=== PATIENT | male | born 1945 | race Caucasian/White ===

== ENCOUNTER 2016-10-21 08:04 | Emergency (ER) | payer OTHER ==
[~2016-10-21] VITALS: Ht 180.3 cm; Wt 67.1 kg
[~2016-10-21 08:04] MED LIST: ASPIRIN81 M2 PO; AZULFIDINE500 M1 PO; CARDIZEM120 MG PO; CARVEDILOL12.5 MG PO; CLOPIDOGREL75 MG PO; COREG12.5 M1 PO; COREG6.25 M1 PO; Cardizem CD,Cartia XT,Tiazac PO; DIGOXIN250 MCG PO; EFFIENT10 MG PO; EFFIENT5 MG PO; IMODIUM MS REL1 EACH PO; LISINOPRIL5 MG PO; OMEPRAZOLE20 MG PO; PREDNISONE10 MG PO; PRINIVIL20 MG PO; TYLENOL EXTRA500 MG PO; XARELTO20 MG PO; ZOCOR40 MG PO
[2016-10-21 09:46] VITALS: BP 159/95
== END 2016-10-21 09:46 | disposition home or self-care (01) ==
LOC: EME 08:04
PROC: 0HQEXZZ Repair Left Lower Arm Skin, External Approach (ICD-10-PCS; principal; 2016-10-21)
DX: S51.812A Laceration without foreign body of left forearm, initial encounter (principal); W01.190A Fall on same level from slipping, tripping and stumbling with subsequent striking against furniture, initial encounter; I10 Essential (primary) hypertension
CPT/HCPCS: 99281; 99284

== ENCOUNTER 2017-01-19 10:56 | Inpatient (IN) | payer OTHER ==
[~2017-01-19] VITALS: Ht 180.3 cm; Wt 62.3 kg
[2017-01-19 11:21] LABS: BASOPHIL COUNT 0.1 K/uL (0-0.1); EOSINOPHIL (%) 0.2 % (0-5); HEMATOCRIT 47.5 % (38.0-50.0); IMMATURE GRANULOCYTE (%) 0.6 % (0.0-0.7); IMMATURE GRANULOCYTE COUNT 0.1 K/uL; INSTRUMENT ABS NEUTROPHIL CT 11.5 K/uL; LYMPHOCYTE COUNT 0.9 K/uL (1.0-2.8); MCH 31.3 PG (29.0-34.0); MCHC 32.8 G/DL (30.0-36.0); MCV 95.4 FL (86-99); MONOCYTE (%) 4.5 % (3-12); MONOCYTE COUNT 0.6 K/uL (0-0.8); NEUTROPHIL (%) 87.7 % (45-76); NEUTROPHIL COUNT 11.5 K/uL (1.8-6.4); PLATELET COUNT 309 K/uL (156-360); RBC DIS.WIDTH-CV 13.8 % (11.8-14.6); RBC DIS.WIDTH-SD 48.6 % (39-53); RED BLOOD COUNT 4.98 M/uL (4.00-5.50); WHITE BLOOD COUNT 13.1 K/uL (4.1-10.2)
[2017-01-19 11:29] LABS: INTER. NORMALIZED RATIO 1.1; PROTHROMBIN TIME 10.8 (9.2-11.2); PTT 25.8 (25-32)
[2017-01-19 11:30] LABS: AMYLASE 69 IU/L (1-118); CHLORIDE 99 mEq/L (99-109); POTASSIUM 4.6 mEq/L (3.7-5.4); SODIUM 137 mEq/L (136-147)
[2017-01-19 11:32] LABS: GLUCOSE 98 mg/dL (70-99)
[2017-01-19 11:33] LABS: ANION GAP 13 MEQ/L (2-14)
[2017-01-19 11:35] LABS: SERUM ETHYL ALCOHOL < 10 mg/dL
[2017-01-19 11:36] LABS: GFR ESTIMATE (CALCULATED) > 59 mL/min/
[2017-01-19 11:37] LABS: UREA NITROGEN (BUN) 10 mg/dL (9-23)
[2017-01-19 11:39] LABS: LIPASE 19 U/L (1.0-51.0)
[2017-01-19 11:42] LABS: TROP-I INTERPRETATION NEGATIVE; TROPONIN-I 0.04 ng/mL (0.0-0.30)
[2017-01-19] MEDS ORDERED: CARVEDILOL6.25 MG PO (13:58)
[2017-01-19] MEDS ORDERED: ASPIRIN325 MG PO (13:59)
[2017-01-19] MEDS ORDERED: CILOSTAZOL100 MG PO (14:01)
[2017-01-19 15:02] LABS: ADD MIUA? NO; BILIRUBIN NEGATIVE; BLOOD NEGATIVE; COLOR YELLOW ((YELLOW)); GLUCOSE (STRIP) NEGATIVE; KETONES NEGATIVE; LEUKOCYTES NEGATIVE; NITRITE NEGATIVE; PROTEIN (STRIP) NEGATIVE; SPECIFIC GRAVITY 1.033 (1.000-1.030); UCUL ADDED? NO; UROBILINOGEN 0.2 MG/DL (0.2-1.0)
[2017-01-19 15:11] LABS: Estimated Average Glucose 105 mg/dL (70-123); HDL CHOLESTEROL 51 MG/DL (Desirable>=40); HEMOGLOBIN A1c (GLYCOHEMOGLOB) 5.3 % HGB (Below 5.7); LDL CHOLESTEROL 92 mg/dL (Desirable<100); NON-HDL CHOLESTEROL 126 mg/dL (Desirable<160); TOTAL CHOLESTEROL 177 mg/dL (Desirable<200); TRIGLYCERIDES 172 MG/DL (Normal: <150)
[2017-01-19 15:12] LABS: AMPHETAMINE NEGATIVE (500 ng/mL); BARBITURATES NEGATIVE (200 ng/mL); BENZODIAZEPINES NEGATIVE (150 ng/mL); COCAINE NEGATIVE (150 ng/mL); INTERNAL CONTROLS VALID? YES; METHADONE NEGATIVE (200 ng/mL); METHAMPHETAMINE NEGATIVE (500 ng/mL); OPIATES (MORPHINE) NEGATIVE (100 ng/mL); OXYCODONE NEGATIVE (100 ng/mL); PHENCYCLIDINE NEGATIVE (25 ng/mL); PROPOXYPHENE NEGATIVE (300 ng/mL); THC CANNABINOIDS NEGATIVE (50 ng/mL); TRICYCLIC ANTIDEPRESSANTS NEGATIVE (300 ng/mL)
[2017-01-19 15:58] VITALS: BP 166/109
[2017-01-19 20:44] VITALS: BP 181/94
[2017-01-20] VITALS (12 sets, daily range): BP systolic 72–166; BP diastolic 48–106
[2017-01-20 06:23] LABS: BASOPHIL COUNT 0.1 K/uL (0-0.1); EOSINOPHIL COUNT 0.1 K/uL (0-0.3); HEMATOCRIT 42.4 % (38.0-50.0); IMMATURE GRANULOCYTE (%) 0.7 % (0.0-0.7); IMMATURE GRANULOCYTE COUNT 0.1 K/uL; INSTRUMENT ABS NEUTROPHIL CT 10.6 K/uL; LYMPHOCYTE COUNT 1.4 K/uL (1.0-2.8); MCH 32.5 PG (29.0-34.0); MCHC 34.2 G/DL (30.0-36.0); MCV 95.1 FL (86-99); MEAN PLAT.VOLUME 10.3 uM^3 (9.0-12.4); MONOCYTE (%) 8.9 % (3-12); MONOCYTE COUNT 1.2 K/uL (0-0.8); NEUTROPHIL (%) 78.6 % (45-76); NEUTROPHIL COUNT 10.6 K/uL (1.8-6.4); PLATELET COUNT 302 K/uL (156-360); RBC DIS.WIDTH-CV 13.8 % (11.8-14.6); RBC DIS.WIDTH-SD 48.5 % (39-53); RED BLOOD COUNT 4.46 M/uL (4.00-5.50); WHITE BLOOD COUNT 13.5 K/uL (4.1-10.2)
[2017-01-20 06:51] LABS: ANION GAP 12 MEQ/L (2-14); CHLORIDE 102 MEQ/L (99-109); GFR ESTIMATE (CALCULATED) > 59 mL/min/; GLUCOSE 85 mg/dL (70-99); POTASSIUM 3.7 MEQ/L (3.7-5.4); SAMPLE HEMOLYSIS CHECK 0; SAMPLE ICTERIC CHECK 0; SAMPLE LIPEMIA CHECK 0; SODIUM 139 MEQ/L (136-147); UREA NITROGEN (BUN) 10 mg/dL (9-23)
[2017-01-20 15:32] LABS: TROP-I INTERPRETATION NEGATIVE; TROPONIN-I 0.03 ng/mL (0.0-0.30)
[2017-01-21] VITALS (7 sets, daily range): BP systolic 94–147; BP diastolic 52–83
[2017-01-22 03:02] VITALS: BP 129/79
[2017-01-22 07:19] VITALS: BP 140/85
[2017-01-22] MEDS ORDERED: ASPIR-LOW81 MG PO (11:30)
[2017-01-22] MEDS ORDERED: CARVEDILOL25 MG PO (11:30)
[2017-01-22 11:46] VITALS: BP 105/80
[2017-01-22] MEDS ORDERED: LISINOPRIL2.5 MG PO (12:35)
[2017-01-22] MEDS ORDERED: DIGOXIN125 MCG PO (12:37)
[2017-01-22] MEDS ORDERED: NICOTINE PATCH1 EAC2 TD (12:37)
[2017-01-22] MEDS ORDERED: ELIQUIS5 MG PO (12:37)
[2017-01-22] MEDS ORDERED: PRAVASTATIN SOD80 MG PO (12:37)
[2017-01-22] MEDS ORDERED: PROTONIX40 MG PO (17:02)
== END 2017-01-22 14:58 | DRG 65 ==
LOC: EME → EDSEX 10:56 → EDBD 10:56 → EME 10:56 → 4EAST 14:07 → EDOF 14:07 → 5SOUTH 15:31 → 4EAST 01-20 10:17
PROVIDERS: Emergency Medicine; Internal Medicine
DX: I63.9 Cerebral infarction, unspecified (principal); G81.94 Hemiplegia, unspecified affecting left nondominant side; R47.1 Dysarthria and anarthria; R13.10 Dysphagia, unspecified; I10 Essential (primary) hypertension; R29.703 NIHSS score 3; I48.1 Persistent atrial fibrillation; I25.10 Atherosclerotic heart disease of native coronary artery without angina pectoris; I25.2 Old myocardial infarction; Z95.5 Presence of coronary angioplasty implant and graft; K50.90 Crohn's disease, unspecified, without complications; I45.10 Unspecified right bundle-branch block; E78.5 Hyperlipidemia, unspecified; I25.5 Ischemic cardiomyopathy; I35.0 Nonrheumatic aortic (valve) stenosis; I73.9 Peripheral vascular disease, unspecified; F17.210 Nicotine dependence, cigarettes, uncomplicated; Z86.718 Personal history of other venous thrombosis and embolism; Z79.82 Long term (current) use of aspirin; Z90.49 Acquired absence of other specified parts of digestive tract; Z92.3 Personal history of irradiation; Z85.820 Personal history of malignant melanoma of skin; Z85.819 Personal history of malignant neoplasm of unspecified site of lip, oral cavity, and pharynx; Z87.19 Personal history of other diseases of the digestive system
CPT/HCPCS: 70450; 70496; 70498; 70551; 80048; 80061; 81003; 82150; 83036; 83690; 84484; 85025; 85027; 85610; 85730; 86900; 86901; 92610 GN; 93005; 93306; 97530 GO; 97530 GP; 99281; 99285; G0480; J1650; J2060; J7040; J7050; J7512

== ENCOUNTER 2017-01-22 11:13 | Inpatient (IN) | payer OTHER ==
[~2017-01-22] VITALS: Ht 180.3 cm; Wt 62.0 kg
[~2017-01-22 11:13] MED LIST changes: +ASPIRIN325 MG PO; +CARVEDILOL6.25 MG PO; +CILOSTAZOL100 MG PO
[2017-01-22] MEDS ORDERED: CARVEDILOL25 MG PO (11:30)
[2017-01-22] MEDS ORDERED: ASPIR-LOW81 MG PO (11:30)
[2017-01-22] MEDS ORDERED: LISINOPRIL2.5 MG PO (12:35)
[2017-01-22] MEDS ORDERED: NICOTINE PATCH1 EAC2 TD (12:37)
[2017-01-22] MEDS ORDERED: ELIQUIS5 MG PO (12:37)
[2017-01-22] MEDS ORDERED: PRAVASTATIN SOD80 MG PO (12:37)
[2017-01-22] MEDS ORDERED: DIGOXIN125 MCG PO (12:37)
[2017-01-22 15:25] VITALS: BP 152/84
[2017-01-22] MEDS ORDERED: PROTONIX40 MG PO (17:02)
[2017-01-23 02:48] VITALS: BP 136/84
[2017-01-23 05:05] VITALS: BP 131/76
[2017-01-23 15:58] VITALS: BP 139/82
[2017-01-23 20:42] LABS: POINT-OF-CARE METER ID UU14174215
[2017-01-24 04:55] VITALS: BP 127/88
[2017-01-24 15:50] VITALS: BP 143/94
[2017-01-25 06:08] VITALS: BP 147/80
[2017-01-25 16:00] VITALS: BP 150/98
[2017-01-25 17:00] VITALS: BP 133/76
[2017-01-26 05:29] VITALS: BP 166/83
[2017-01-26 15:27] VITALS: BP 133/90
[2017-01-27 04:46] VITALS: BP 149/92
[2017-01-27 15:41] VITALS: BP 128/80
[2017-01-28 06:24] VITALS: BP 143/87
[2017-01-28 07:12] LABS: HEMATOCRIT 43.8 % (38.0-50.0); MCH 32.1 PG (29.0-34.0); MCHC 33.8 G/DL (30.0-36.0); MEAN PLAT.VOLUME 11.4 uM^3 (9.0-12.4); PLATELET COUNT 264 K/uL (156-360); RBC DIS.WIDTH-CV 13.9 % (11.8-14.6); RBC DIS.WIDTH-SD 48.8 % (39-53); RED BLOOD COUNT 4.61 M/uL (4.00-5.50); WHITE BLOOD COUNT 10.4 K/uL (4.1-10.2)
[2017-01-28 07:44] LABS: ANION GAP 12 MEQ/L (2-14); CHLORIDE 102 MEQ/L (99-109); GFR ESTIMATE (CALCULATED) > 59 mL/min/; GLUCOSE 80 mg/dL (70-99); POTASSIUM 3.8 MEQ/L (3.7-5.4); SAMPLE HEMOLYSIS CHECK 0; SAMPLE ICTERIC CHECK 0; SAMPLE LIPEMIA CHECK 0; SODIUM 138 MEQ/L (136-147); UREA NITROGEN (BUN) 11 mg/dL (9-23)
[2017-01-28 15:10] VITALS: BP 160/89
[2017-01-29 05:57] VITALS: BP 140/88
[2017-01-29 15:39] VITALS: BP 177/84
[2017-01-29] MEDS ORDERED: ELIQUIS5 MG PO (21:52)
[2017-01-29] MEDS ORDERED: PRAVASTATIN SOD80 MG PO (21:52)
[2017-01-29] MEDS ORDERED: NICOTINE PATCH1 EAC2 TD (21:52)
[2017-01-29] MEDS ORDERED: DIGOXIN125 MCG PO (21:52)
[2017-01-29] MEDS ORDERED: ASPIR-LOW81 MG PO (21:52)
[2017-01-29] MEDS ORDERED: LISINOPRIL5 MG PO (21:52)
[2017-01-29] MEDS ORDERED: CARVEDILOL25 MG PO (21:52)
[2017-01-29] MEDS ORDERED: OMEPRAZOLE20 MG PO (21:52)
[2017-01-30 08:29] VITALS: BP 155/95
== END 2017-01-30 14:04 | disposition home health service (06) | DRG 65 ==
LOC: 3WEST 11:13
PROVIDERS: Physical Medicine & Rehabilitation Pain Medicine; Psychiatry & Neurology Neurology
PROC: F07M0ZZ Range of Motion and Joint Mobility Treatment of Musculoskeletal System - Whole Body (ICD-10-PCS; principal; 2017-01-22)
DX: I63.9 Cerebral infarction, unspecified (principal); I48.91 Unspecified atrial fibrillation; G81.94 Hemiplegia, unspecified affecting left nondominant side; I48.2 Chronic atrial fibrillation; I42.9 Cardiomyopathy, unspecified; K50.90 Crohn's disease, unspecified, without complications; R53.1 Weakness; R47.81 Slurred speech; I35.0 Nonrheumatic aortic (valve) stenosis; D72.829 Elevated white blood cell count, unspecified; F17.200 Nicotine dependence, unspecified, uncomplicated; T38.0X5A Adverse effect of glucocorticoids and synthetic analogues, initial encounter; E78.5 Hyperlipidemia, unspecified; I10 Essential (primary) hypertension; I25.10 Atherosclerotic heart disease of native coronary artery without angina pectoris; Z85.819 Personal history of malignant neoplasm of unspecified site of lip, oral cavity, and pharynx; Z86.718 Personal history of other venous thrombosis and embolism; Z79.01 Long term (current) use of anticoagulants
CPT/HCPCS: 80048; 82948; 85027; 87493; 92523 GN; 92610 GN; 97110 GO; 97530 GP; J7512

== ENCOUNTER 2017-04-11 09:33 | Emergency (ER) | payer OTHER ==
[~2017-04-11] VITALS: Ht 180.3 cm; Wt 62.6 kg
[~2017-04-11 09:33] MED LIST changes: +ASPIR-LOW81 MG PO; +CARVEDILOL25 MG PO; +DIGOXIN125 MCG PO; +ELIQUIS5 MG PO; +LISINOPRIL2.5 MG PO; +NICOTINE PATCH1 EAC2 TD; +PRAVASTATIN SOD80 MG PO; +PROTONIX40 MG PO
[2017-04-11 10:28] LABS: BASOPHIL COUNT 0.1 K/uL (0-0.1); EOSINOPHIL (%) 0.9 % (0-5); EOSINOPHIL COUNT 0.2 K/uL (0-0.3); HEMATOCRIT 43.6 % (38.0-50.0); IMMATURE GRANULOCYTE (%) 1.3 % (0.0-0.7); IMMATURE GRANULOCYTE COUNT 0.3 K/uL; INSTRUMENT ABS NEUTROPHIL CT 17.6 K/uL; LYMPHOCYTE COUNT 0.7 K/uL (1.0-2.8); MCH 31.6 PG (29.0-34.0); MCHC 34.2 G/DL (30.0-36.0); MCV 92.6 FL (86-99); MEAN PLAT.VOLUME 9.7 uM^3 (9.0-12.4); MONOCYTE COUNT 1.2 K/uL (0-0.8); NEUTROPHIL (%) 88.2 % (45-76); NEUTROPHIL COUNT 17.6 K/uL (1.8-6.4); PLATELET COUNT 276 K/uL (156-360); RED BLOOD COUNT 4.71 M/uL (4.00-5.50); WHITE BLOOD COUNT 19.9 K/uL (4.1-10.2)
[2017-04-11 10:34] LABS: INTER. NORMALIZED RATIO 1.3; PROTHROMBIN TIME 14.6 SEC (10.2-12.9)
[2017-04-11 10:39] LABS: CHLORIDE 93 mEq/L (99-109)
[2017-04-11 10:40] LABS: POTASSIUM 4.1 mEq/L (3.7-5.4); SODIUM 131 mEq/L (136-147)
[2017-04-11 10:42] LABS: GLUCOSE 113 mg/dL (70-99)
[2017-04-11 10:43] LABS: ANION GAP 11 MEQ/L (2-14)
[2017-04-11 10:44] LABS: TOTAL BILIRUBIN 1.2 mg/dL (0.0-1.0)
[2017-04-11 10:45] LABS: ALKALINE PHOSPHATASE 99 IU/L (3-129); GFR ESTIMATE (CALCULATED) > 59 mL/min/
[2017-04-11 10:47] LABS: UREA NITROGEN (BUN) 10 mg/dL (9-23)
[2017-04-11 10:49] LABS: LIPASE 26 U/L (1.0-51.0); TROP-I INTERPRETATION NEGATIVE; TROPONIN-I 0.02 ng/mL (0.0-0.30)
[2017-04-11 12:24] VITALS: BP 111/78
== END 2017-04-11 12:30 | disposition left against medical advice (07) ==
LOC: EME 09:33
PROVIDERS: Emergency Medicine
DX: R07.9 Chest pain, unspecified (principal); R10.9 Unspecified abdominal pain; D72.829 Elevated white blood cell count, unspecified; Z87.891 Personal history of nicotine dependence; I25.2 Old myocardial infarction; K21.9 Gastro-esophageal reflux disease without esophagitis; I48.91 Unspecified atrial fibrillation; I35.0 Nonrheumatic aortic (valve) stenosis; Z98.61 Coronary angioplasty status; Z85.820 Personal history of malignant melanoma of skin
CPT/HCPCS: 71010; 80053; 83690; 84484; 85025; 85610; 85730; 93005; 99281; 99285

== ENCOUNTER 2017-05-26 11:03 | Inpatient (IN) | payer OTHER ==
[~2017-05-26] VITALS: Ht 182.9 cm; Wt 64.1 kg
[2017-05-26 11:40] LABS: BASOPHIL COUNT 0.1 K/uL (0-0.1); EOSINOPHIL (%) 0.4 % (0-5); EOSINOPHIL COUNT 0.1 K/uL (0-0.3); HEMATOCRIT 40.2 % (38.0-50.0); IMMATURE GRANULOCYTE (%) 1.1 % (0.0-0.7); IMMATURE GRANULOCYTE COUNT 0.2 K/uL; LYMPHOCYTE COUNT 1.4 K/uL (1.0-2.8); MCH 32.9 PG (29.0-34.0); MCHC 34.1 G/DL (30.0-36.0); MCV 96.6 FL (86-99); MEAN PLAT.VOLUME 9.4 uM^3 (9.0-12.4); MONOCYTE (%) 7.8 % (3-12); MONOCYTE COUNT 1.3 K/uL (0-0.8); NEUTROPHIL (%) 82.3 % (45-76); PLATELET COUNT 300 K/uL (156-360); RBC DIS.WIDTH-CV 13.2 % (11.8-14.6); RED BLOOD COUNT 4.16 M/uL (4.00-5.50)
[2017-05-26 11:46] LABS: INTER. NORMALIZED RATIO 1.5; PROTHROMBIN TIME 16.8 SEC (10.2-12.9)
[2017-05-26 11:49] LABS: PTT 34.6 SEC (25-37)
[2017-05-26 11:58] LABS: CHLORIDE 97 mEq/L (99-109); SODIUM 135 mEq/L (136-147)
[2017-05-26 12:00] LABS: GLUCOSE 104 mg/dL (70-99)
[2017-05-26 12:02] LABS: ANION GAP 15 MEQ/L (2-14); TOTAL BILIRUBIN 1.3 mg/dL (0.0-1.0)
[2017-05-26 12:04] LABS: ALKALINE PHOSPHATASE 90 IU/L (3-129); GFR ESTIMATE (CALCULATED) > 59 mL/min/; TROP-I INTERPRETATION NEGATIVE; TROPONIN-I 0.03 ng/mL (0.0-0.30)
[2017-05-26 12:05] LABS: UREA NITROGEN (BUN) 14 mg/dL (9-23)
[2017-05-26 12:06] LABS: DIRECT BILIRUBIN 0.4 mg/dL (0.0-0.3)
[2017-05-26 12:07] LABS: LIPASE 22 U/L (1.0-51.0)
[2017-05-26 13:52] LABS: ADD MIUA? YES; BILIRUBIN NEGATIVE; BLOOD SMALL; COLOR AMBER ((YELLOW)); GLUCOSE (STRIP) NEGATIVE; KETONES NEGATIVE; LEUKOCYTES NEGATIVE; NITRITE NEGATIVE; PROTEIN (STRIP) 30; SPECIFIC GRAVITY 1.027 (1.000-1.030)
[2017-05-26 13:59] LABS: BACTERIA NONE SEEN /HPF; EPITHELIAL CELLS RARE /HPF; HYALINE CASTS 0-5 /LPF; MUCUS 2+ /LPF; RED BLOOD CELLS 15-20 /HPF (0-5); UCUL ADDED? NO; WHITE BLOOD CELLS 0-5 /HPF (0-5)
[2017-05-26] MEDS ORDERED: DIGOX125 MCG PO (16:11)
[2017-05-26] MEDS ORDERED: LISINOPRIL5 MG PO (16:12)
[2017-05-26] MEDS ORDERED: LO-DOSE ASPIRIN81 M2 PO (16:14)
[2017-05-26] MEDS ORDERED: LYRICA50 MG PO (16:16)
[2017-05-26] MEDS ORDERED: TRAMADOL HCL50 MG PO (16:17)
[2017-05-26 18:17] VITALS: BP 176/110
[2017-05-26 23:38] VITALS: BP 164/106
[2017-05-27 03:47] VITALS: BP 196/88
[2017-05-27 06:28] LABS: HEMATOCRIT 41.4 % (38.0-50.0); MCH 34.3 PG (29.0-34.0); MCHC 35.5 G/DL (30.0-36.0); MCV 96.7 FL (86-99); MEAN PLAT.VOLUME 10.1 uM^3 (9.0-12.4); PLATELET COUNT 328 K/uL (156-360); RBC DIS.WIDTH-CV 13.3 % (11.8-14.6); RBC DIS.WIDTH-SD 47.7 % (39-53); RED BLOOD COUNT 4.28 M/uL (4.00-5.50); WHITE BLOOD COUNT 22.3 K/uL (4.1-10.2)
[2017-05-27 06:31] LABS: INTER. NORMALIZED RATIO 1.2; PROTHROMBIN TIME 13.1 SEC (10.2-12.9)
[2017-05-27 06:33] LABS: PTT 32.5 SEC (25-37)
[2017-05-27 06:50] LABS: ANION GAP 16 MEQ/L (2-14); CHLORIDE 99 MEQ/L (99-109); GFR ESTIMATE (CALCULATED) > 59 mL/min/; GLUCOSE 101 mg/dL (70-99); POTASSIUM 3.6 MEQ/L (3.7-5.4); SAMPLE HEMOLYSIS CHECK 0; SAMPLE ICTERIC CHECK 0; SAMPLE LIPEMIA CHECK 0; SODIUM 135 MEQ/L (136-147); UREA NITROGEN (BUN) 12 mg/dL (9-23)
[2017-05-27 08:08] VITALS: BP 168/104
[2017-05-27 12:00] VITALS: BP 124/88
[2017-05-27 16:00] VITALS: BP 148/84
[2017-05-27 18:20] LABS: HDL CHOLESTEROL 36 MG/DL (Desirable>=40); LDL CHOLESTEROL 108 mg/dL (Desirable<100); NON-HDL CHOLESTEROL 147 mg/dL (Desirable<160); TOTAL CHOLESTEROL 183 mg/dL (Desirable<200); TRIGLYCERIDES 197 MG/DL (Normal: <150)
[2017-05-27 20:24] VITALS: BP 110/60
[2017-05-27 23:58] VITALS: BP 115/80
[2017-05-28 06:45] LABS: HDL CHOLESTEROL 36 MG/DL (Desirable>=40); LDL CHOLESTEROL 91 mg/dL (Desirable<100); NON-HDL CHOLESTEROL 118 mg/dL (Desirable<160); TOTAL CHOLESTEROL 154 mg/dL (Desirable<200); TRIGLYCERIDES 136 MG/DL (Normal: <150)
[2017-05-28 07:25] VITALS: BP 140/84
[2017-05-28 11:13] VITALS: BP 116/68
[2017-05-28 15:14] VITALS: BP 145/87
[2017-05-28 19:51] VITALS: BP 141/93
[2017-05-29 03:42] VITALS: BP 161/95
[2017-05-29 04:00] VITALS: BP 160/82
[2017-05-29 07:53] VITALS: BP 178/99
[2017-05-29 08:50] LABS: EOSINOPHIL (%) 0.4 % (0-5); EOSINOPHIL COUNT 0.1 K/uL (0-0.3); HEMATOCRIT 36.9 % (38.0-50.0); IMMATURE GRANULOCYTE (%) 0.8 % (0.0-0.7); IMMATURE GRANULOCYTE COUNT 0.1 K/uL; INSTRUMENT ABS NEUTROPHIL CT 10.8 K/uL; LYMPHOCYTE COUNT 0.9 K/uL (1.0-2.8); MCH 34.8 PG (29.0-34.0); MCHC 34.7 G/DL (30.0-36.0); MCV 100.3 FL (86-99); MEAN PLAT.VOLUME 9.9 uM^3 (9.0-12.4); MONOCYTE (%) 9.2 % (3-12); MONOCYTE COUNT 1.2 K/uL (0-0.8); NEUTROPHIL (%) 82.7 % (45-76); NEUTROPHIL COUNT 10.8 K/uL (1.8-6.4); PLATELET COUNT 258 K/uL (156-360); RBC DIS.WIDTH-SD 47.8 % (39-53); RED BLOOD COUNT 3.68 M/uL (4.00-5.50); WHITE BLOOD COUNT 13.1 K/uL (4.1-10.2)
[2017-05-29 12:00] VITALS: BP 135/76
[2017-05-29 15:31] VITALS: BP 147/85
[2017-05-29 19:45] VITALS: BP 159/98
[2017-05-30] VITALS: BP 160/98
[2017-05-30 01:18] LABS: C DIFF TOXIN NEGATIVE (NEGATIVE)
[2017-05-30 01:20] LABS: PROBE CHECK PASS; SPECIMEN PROCESSING CONTROL PASS
[2017-05-30 03:25] VITALS: BP 148/88
[2017-05-30 08:02] VITALS: BP 177/91
[2017-05-30 12:12] VITALS: BP 118/61
[2017-05-30 16:14] VITALS: BP 172/96
[2017-05-30 16:21] VITALS: BP 160/72
== END 2017-05-30 18:31 | DRG 65 ==
LOC: EME 11:03 → 5SOUTH 14:32 → EDOF 14:32 → ENRESERV 14:39 → 5SOUTH 18:01
PROVIDERS: Emergency Medicine; Internal Medicine; Physician Assistant
DX: I61.8 Other nontraumatic intracerebral hemorrhage (principal); K50.90 Crohn's disease, unspecified, without complications; I69.354 Hemiplegia and hemiparesis following cerebral infarction affecting left non-dominant side; Z68.1 Body mass index [BMI] 19.9 or less, adult; E44.1 Mild protein-calorie malnutrition; G81.91 Hemiplegia, unspecified affecting right dominant side; H53.2 Diplopia; F17.200 Nicotine dependence, unspecified, uncomplicated; I25.10 Atherosclerotic heart disease of native coronary artery without angina pectoris; I11.9 Hypertensive heart disease without heart failure; R26.2 Difficulty in walking, not elsewhere classified; D72.829 Elevated white blood cell count, unspecified; E78.5 Hyperlipidemia, unspecified; R47.1 Dysarthria and anarthria; Z95.5 Presence of coronary angioplasty implant and graft; I48.2 Chronic atrial fibrillation; R13.10 Dysphagia, unspecified; Z86.718 Personal history of other venous thrombosis and embolism; Z85.819 Personal history of malignant neoplasm of unspecified site of lip, oral cavity, and pharynx; Z79.82 Long term (current) use of aspirin; Z82.3 Family history of stroke; Z79.899 Other long term (current) drug therapy; Z85.21 Personal history of malignant neoplasm of larynx; Z85.820 Personal history of malignant melanoma of skin; Z79.01 Long term (current) use of anticoagulants; Z92.3 Personal history of irradiation; Z90.49 Acquired absence of other specified parts of digestive tract; Z82.49 Family history of ischemic heart disease and other diseases of the circulatory system; R41.4 Neurologic neglect syndrome; I51.7 Cardiomegaly
CPT/HCPCS: 70450; 70544; 70551; 71010; 80048; 80061; 80076; 81003; 83605; 83690; 83880; 84484; 85025; 85027; 85610; 85730; 86850; 86900; 86901; 87493; 92523 GN; 93005; 97530 GO; 97530 GP; 99281; 99285; C9132; J0360; J2060; J7030; J7512

== ENCOUNTER 2017-06-11 10:09 | Inpatient (IN) | payer OTHER ==
[~2017-06-11] VITALS: Ht 170.2 cm; Wt 64.6 kg
[~2017-06-11 10:09] MED LIST changes: +DIGOX125 MCG PO; +LO-DOSE ASPIRIN81 M2 PO; +LYRICA50 MG PO; +TRAMADOL HCL50 MG PO
[2017-06-11 10:38] LABS: BASE EXCESS -16.7 mEq/L (-3 to +3); BICARBONATE 15.1 mEq/L (22-26); CARBOXY HGB 1.5 % (0-5); METHEMOGLOBIN 0.8 % (0-1.5); PCO2 60 mm Hg (35-45); PO2 287 mm Hg (80-100)
[2017-06-11 10:39] LABS: COMMENTS - BLOOD GASES A+C+; DEVICE AMBU BAG TO ETT; O2 FLOW 15 L/MIN; SITE RR; pH 7.01 (7.35-7.45)
[2017-06-11 11:35] LABS: INTER. NORMALIZED RATIO 1.5; PROTHROMBIN TIME 17.2 SEC (10.2-12.9)
[2017-06-11 11:38] LABS: HEMATOCRIT 43.9 % (38.0-50.0); RBC DIS.WIDTH-CV 12.6 % (11.8-14.6); RBC DIS.WIDTH-SD 50.3 % (39-53); RED BLOOD COUNT 4.12 M/uL (4.00-5.50); WHITE BLOOD COUNT 21.1 K/uL (4.1-10.2)
[2017-06-11 11:38] LABS: ADD MIUA? YES; BILIRUBIN NEGATIVE; BLOOD NEGATIVE; COLOR AMBER ((YELLOW)); GLUCOSE (STRIP) NEGATIVE; KETONES NEGATIVE; LEUKOCYTES NEGATIVE; NITRITE NEGATIVE; PROTEIN (STRIP) NEGATIVE; SPECIFIC GRAVITY 1.023 (1.000-1.030); UROBILINOGEN 0.2 MG/DL (0.2-1.0)
[2017-06-11 11:40] LABS: CHLORIDE 113 mEq/L (99-109); POTASSIUM 4.4 mEq/L (3.7-5.4); PTT 63.8 SEC (25-37); SODIUM 151 mEq/L (136-147)
[2017-06-11 11:43] LABS: ANION GAP 16 MEQ/L (2-14); GLUCOSE 149 mg/dL (70-99)
[2017-06-11 11:43] LABS: BACTERIA RARE /HPF; EPITHELIAL CELLS RARE /HPF; MUCUS 1+ /LPF; RED BLOOD CELLS 0-5 /HPF (0-5); UCUL ADDED? NO; WHITE BLOOD CELLS 0-5 /HPF (0-5)
[2017-06-11 11:44] LABS: TOTAL BILIRUBIN 0.7 mg/dL (0.0-1.0)
[2017-06-11 11:45] LABS: ALKALINE PHOSPHATASE 171 IU/L (3-129); MCV 106.6 FL (86-99)
[2017-06-11 11:47] LABS: UREA NITROGEN (BUN) 45 mg/dL (9-23)
[2017-06-11 11:49] LABS: LIPASE 106 U/L (1.0-51.0)
[2017-06-11 11:55] LABS: TROP-I INTERPRETATION INDETERMINATE; TROPONIN-I 0.32 ng/mL (0.0-0.30)
[2017-06-11 12:00] LABS: GFR ESTIMATE (CALCULATED) 37 mL/min/
[2017-06-11 12:34] LABS: ABS NEUTROPHIL COUNT 17.4; ATYPICAL LYMPHOCYTE 0.9 %; BAND NEUTROPHILS 12.1 % (0-8.0); BASOPHILS 0.9 %; BURR CELLS 2+; EOSINOPHIL ABS CT 0; INSTRUMENT ABS NEUTROPHIL CT 16.2 K/uL; MEAN PLAT.VOLUME 10.4 uM^3 (9.0-12.4); METAMYELOCYTES 1.7 %; MYELOCYTES 3.4 %; PLAT.SUFFICIENCY DECREASED; POIKILOCYTOSIS 2+; POLYCHROMASIA 1+; SEG.NEUTROPHILS 70.3 % (46.0-76.0)
[2017-06-11 12:42] LABS: PLATELET COUNT 136 K/uL (156-360)
[2017-06-11 14:24] LABS: BASE EXCESS -9.7 mEq/L (-3 to +3); BICARBONATE 19.3 mEq/L (22-26); CARBOXY HGB 1.9 % (0-5); COMMENTS - BLOOD GASES C+ANA; PCO2 53 mm Hg (35-45); PO2 116 mm Hg (80-100); SITE ALINE; pH 7.17 (7.35-7.45)
[2017-06-11 14:25] LABS: DEVICE 840 PB; FI02 100 %; MODE AC
[2017-06-11 14:26] LABS: MECHANICAL RATE 20 resp/min; PEEP 5 CM/H20; TIDAL VOLUME 450 ML; TOTAL RESP RATE 30 resp/min
[2017-06-11 16:15] VITALS: BP 91/53
[2017-06-11 17:17] LABS: BASE EXCESS -14.9 mEq/L (-3 to +3); CARBOXY HGB 1.7 % (0-5); METHEMOGLOBIN 1.6 % (0-1.5); PCO2 49 mm Hg (35-45)
[2017-06-11 17:18] LABS: BICARBONATE 14.9 mEq/L (22-26); COMMENTS - BLOOD GASES C+; DEVICE VENT; FI02 100 %; MECHANICAL RATE 20 resp/min; MODE A/C; PEEP 5 CM/H20; PO2 365 mm Hg (80-100); SITE A LINE; TIDAL VOLUME 500 ML; TOTAL RESP RATE 31 resp/min
[2017-06-11 17:19] LABS: pH 7.09 (7.35-7.45)
== END 2017-06-11 23:59 | DRG 871 ==
LOC: EME 10:09 → EDOF 13:21 → CANRESERV 13:22 → ENRESERV 13:22 → 4WEST 15:10
PROVIDERS: Emergency Medicine; Internal Medicine Critical Care Medicine
PROC: 5A1935Z Respiratory Ventilation, Less than 24 Consecutive Hours (ICD-10-PCS; principal; 2017-06-11)
PROC: 0BH17EZ Insertion of Endotracheal Airway into Trachea, Via Natural or Artificial Opening (ICD-10-PCS; principal; 2017-06-11)
PROC: 4A133B1 Monitoring of Arterial Pressure, Peripheral, Percutaneous Approach (ICD-10-PCS; 2017-06-11)
PROC: 03HY32Z Insertion of Monitoring Device into Upper Artery, Percutaneous Approach (ICD-10-PCS; 2017-06-11)
PROC: 5A12012 Performance of Cardiac Output, Single, Manual (ICD-10-PCS; 2017-06-11)
PROC: 02HV33Z Insertion of Infusion Device into Superior Vena Cava, Percutaneous Approach (ICD-10-PCS; 2017-06-11)
PROC: 5A2204Z Restoration of Cardiac Rhythm, Single (ICD-10-PCS; 2017-06-11)
DX: A41.9 Sepsis, unspecified organism (principal); J69.0 Pneumonitis due to inhalation of food and vomit; J96.91 Respiratory failure, unspecified with hypoxia; N17.9 Acute kidney failure, unspecified; I47.2 Ventricular tachycardia; G93.40 Encephalopathy, unspecified; E87.2 Acidosis; I48.91 Unspecified atrial fibrillation; N28.0 Ischemia and infarction of kidney; I46.9 Cardiac arrest, cause unspecified; I25.10 Atherosclerotic heart disease of native coronary artery without angina pectoris; K50.90 Crohn's disease, unspecified, without complications; Z66 Do not resuscitate; Z86.73 Personal history of transient ischemic attack (TIA), and cerebral infarction without residual deficits; Z95.5 Presence of coronary angioplasty implant and graft; Z85.819 Personal history of malignant neoplasm of unspecified site of lip, oral cavity, and pharynx; Z87.891 Personal history of nicotine dependence; Z82.3 Family history of stroke; Z82.49 Family history of ischemic heart disease and other diseases of the circulatory system
CPT/HCPCS: 36600; 70450; 71010; 80048; 80053; 80202; 81003; 82803; 83605; 83690; 84484; 85025 91; 85027; 85610; 85730; 87040; 87070; 87077; 87186; 87205; 87641; 87801; 92950; 93005; 94002; 99281; 99285; C1751; C1894; J0171; J0282; J0461; J1160; J2270; J2543; J3370; J7030; J7050; J7644